=== PATIENT | female | born 1985 | race Two or more races ===

== ENCOUNTER 2023-08-22 11:15 | Emergency (ER) | payer MEDICAID, OTHER ==
[~2023-08-22] VITALS: Ht 160 cm; Wt 103.1 kg
[2023-08-22 12:11] VITALS: BP 153/97; PULSE 97; RESP 18; TEMP 98.2; O2SAT 96
[2023-08-22] MEDS ORDERED: IBUP-1456 PO (12:53)
[2023-08-22] MEDS ORDERED: BACL10TA PO (12:53)
== END 2023-08-22 13:02 | disposition home or self-care (01) ==
LOC: ER 11:15
DX: M77.32 Calcaneal spur, left foot (principal)
CPT/HCPCS: 73630